=== PATIENT | male | born 1940 | race Caucasian/White ===

== ENCOUNTER 2020-01-27 05:43 | Observation (INO) | payer MEDICARE, OTHER ==
[2020-01-23 11:30] LABS: BASOPHILS % (AUTO) 0.6 % (0-1); EOSINOPHILS # (AUTO) 0.3 X10'3 (0-0.9); EOSINOPHILS % (AUTO) 3.5 % (0-6); LYMPHOCYTES % (AUTO) 12.6 % (21-51); MEAN CORPUSCULAR HGB CONC 33.1 g/dL (33.0-36.5); MEAN CORPUSCULAR VOLUME 93.7 FL (78-98); MEAN PLATELET VOLUME 8.1 FL (7.4-10.4); MONOCYTES # (AUTO) 0.9 X10'3 (0-0.9); MONOCYTES % (AUTO) 11.7 % (2-12); NEUTROPHILS # (AUTO) 5.5 X10'3 (1.8-7.7); NEUTROPHILS % (AUTO) 71.6 % (42-75); PRE OP HEMATOCRIT 37.7 % (42.0-52.0); PRE OP HEMOGLOBIN 12.5 g/dL (14.0-17.9); PRE OP PLATELET COUNT 265 X10'3 (140-440); RED BLOOD COUNT 4.02 X10'6 (4.70-6.10); RED CELL DISTRIBUTION WIDTH 12.5 % (11.5-14.5)
[2020-01-23 11:40] LABS: PRE OP PROTIME 10.5 SECONDS (9.0-12.0)
[2020-01-23 11:41] LABS: ALBUMIN 2.7 G/DL (3.4-5.0); ALBUMIN/GLOBULIN RATIO 0.8 (1.1-1.5); ALKALINE PHOSPHATASE 56 IU/L (46-116); BLOOD UREA NITROGEN 15 MG/DL (7-18); CALCIUM 8.2 MG/DL (8.5-10.1); CHLORIDE 109 MMOL/L (99-107); CREATININE 1.25 MG/DL (0.60-1.10); PRE OP ALT 21 U/L (30-65); PRE OP ANION GAP 10 (8-16); PRE OP AST 11 U/L (10-37); PRE OP BILIRUB, TOTAL 0.4 MG/DL (0.0-1.0); PRE OP SODIUM 142 MMOL/L (135-145); TOTAL CARBON DIOXIDE 22.9 MMOL/L (24-32); TOTAL PROTEIN 6.3 G/DL (6.4-8.2); eGFR 56 ML/MIN
[2020-01-23 11:43] LABS: PRE OP GLUCOSE 280 MG/DL (70-104); PRE OP POTASSIUM 3.2 MMOL/L (3.4-5.1)
[~2020-01-27] VITALS: Ht 177.8 cm; Wt 83.5 kg
[2020-01-27] VITALS (18 sets, daily range): BP systolic 107–151; BP diastolic 53–98
[~2020-01-27 05:43] MED LIST: CARV6.253 PO; DOCUMENT DATE & TIME OF BETA-BLOCKER PO ONE; LISI-604 PO; METF1000 PO; cefazolin/dext.iso 2gm/50ml 50 ML IV ONE; famotidine 20mg tablet PO ONE
[2020-01-27] MEDS ORDERED: LIDOcaine 1% (10mg/ml) 2ml vial ONE (06:11)
[2020-01-27] MEDS: ringers solution, lacted 1,000 ML IV SCH ×3 (06:28→12:46)
[2020-01-27] MEDS ORDERED: neomy sulf/polymyxin B sulf. GU irrigation 1ml amp IR ONE (06:50)
[2020-01-27] MEDS ORDERED: tetracaine 1% (10mg/ml) pres. free inj. ONE (07:09)
[2020-01-27] MEDS ORDERED: fentaNYL/PF 50MCG/1 ML 2ML syringe ONE (07:25)
[2020-01-27] MEDS ORDERED: MIDAZolam 5mg/5ml vial ONE (07:26)
[2020-01-27] MEDS ORDERED: ringers solution, lacted 1,000 ML IV SCH (08:36)
[2020-01-27] MEDS ORDERED: meperidine/PF 25mg/ml syringe IV PRN ×3 (08:40)
[2020-01-27] MEDS ORDERED: morphine 2 MG/ML inj. syringe IV PRN (08:40)
[2020-01-27] MEDS ORDERED: morphine 4 MG/ML inj SYRINge IV PRN (08:40)
[2020-01-27] MEDS ORDERED: proCHLORperazine 10 MG/2 ml inj IV PRN ×2 (08:40→10:35)
[2020-01-27] MEDS ORDERED: ondansetron/PF 4mg/2ml inj IV PRN ×2 (08:40→10:35)
--- NOTE | 2020-01-27 10:19 | NUR ---
Received from OR via [facility], accompanied by Anesthesiologist SEBAS and report given by Anesthesiolgist. PATIENT WITH 18G PIV IN LEFT UE RUNNING LR AT 100. VSS. DENIES PAIN. T11 SENSATION LEVEL AT THIS TIME FROM SPINAL ANESTHESIA. [address] [place] CATHETER IN PLACE. URINE IS PINK IN COLOR. Addendum: 01/27/20 at 1032 by Bradford Cook RN, RN Amended: Links added.
[2020-01-27] MEDS ORDERED: HYDROcodone/acetaminophen 10/325mg tab PO PRN ×2 (10:30→10:35)
[2020-01-27] MEDS ORDERED: zolpidem 5mg tablet PO PRN (10:35)
[2020-01-27] MEDS ORDERED: oxybutynin 5mg tablet PO PRN (10:35)
[2020-01-27] MEDS ORDERED: acetaminophen 325mg tablet PO PRN (10:35)
[2020-01-27] MEDS ORDERED: mag hydrox/Alum hydrox/simeth 30ml oral suspension PO PRN (10:35)
[2020-01-27] MEDS ORDERED: LIDOcaine 2% 10ml TOPICAL JELLY (Urojet) TP ONE (10:35)
[2020-01-27] MEDS ORDERED: opium/belladonna alkaloids No. 15A 30mg rectal suppository RC PRN (10:35)
[2020-01-27] MEDS ORDERED: dextrose ORAL solution 15 GM/59 ML bottle PO PRN ×2 (10:45)
[2020-01-27] MEDS ORDERED: insulin Lispro (HumaLOG) vial - multi-dose SQ SCH (10:45)
[2020-01-27] MEDS ORDERED: glucagon, human recombinant 1mg kit SUBCUT PRN (10:45)
[2020-01-27] MEDS ORDERED: MESSAGE TO PHARMACY PO ONE (10:45)
[2020-01-27] MEDS ORDERED: dextrose 50%-water 50ml dispensing syringe IV PRN ×2 (10:45)
--- NOTE | 2020-01-27 11:19 | NUR ---
ALL CRITERIA FOR DC TO THE FLOOR HAS BEEN ACHIEVED. 2 RAILS UP. BED LOW, CALL LIGHT PRESENT. GAVE REPORT TO LUIS STAUFFER . PAIN AT A TOLERABLE LEVEL AT THIS TIME. DRESSINGS CDI. CARE TURNED OVER TO RN. Addendum: 01/27/20 at 1137 by Bradford Hughes - LUIS RN Amended: Links added.
--- NOTE | 2020-01-27 11:30 | NUR ---
Received report from LUIS Felder and received patient to room 340B with CBI present, 3 way FC for irrigation in place and with leg strap, VANDA hose and SCD's in place. patient alert and pleasant. post op vitals started, VSS will continue to monitor.
--- NOTE | 2020-01-27 12:30 | NUR ---
Hand irrigated patient's 3 way CBI FC, got two small clots out, patient tolerated well and urine now flowing into catheter bag, irena pink-clear in color.
[2020-01-27] MEDS: potassium cl 20mEq in 1/2 NS 1,000 ML IV SCH ×3 (15:01→22:36)
[2020-01-27] MEDS ORDERED: ceFAZolin inj. 1,000 MG in dextrose 5%-water 50ml 50 ML IV SCH (16:00)
--- NOTE | 2020-01-27 18:15 | NUR ---
Received report from primary care nurse Mary RN. Assumed patient care. Patient is awake and alert on room air. In no apparent distress. CBI running a very light pink. Will continue to monitor for changes.
--- NOTE | 2020-01-27 18:16 | NUR ---
Problems reprioritized. Patient report given, questions answered & plan of care reviewed with LUIS Garcia.
[2020-01-27] MEDS: docusate sod 100mg capsule PO SCH (20:00)
[2020-01-27] MEDS: carvedilol 6.25mg tablet PO SCH (20:02)
[2020-01-27] MEDS: metFORMIN 500mg tablet PO SCH (20:02)
[2020-01-27] MEDS ORDERED: insulin glargine (Lantus) pen - multi-dose SQ SCH (21:00)
[2020-01-28] VITALS: BP 130/77
[2020-01-28] MEDS: ceFAZolin 1GM/D5W- ADD-VANTAGE 50 ML IV SCH ×2 (00:11→08:21)
[2020-01-28 05:50] LABS: BASOPHILS % (AUTO) 0.6 % (0-1); EOSINOPHILS # (AUTO) 0.3 X10'3 (0-0.9); EOSINOPHILS % (AUTO) 4.1 % (0-6); HEMATOCRIT 34.3 % (42.0-52.0); HEMOGLOBIN 11.6 g/dl (14.0-17.9); LYMPHOCYTES # (AUTO) 1.2 X10'3 (1.1-4.8); MEAN CORPUSCULAR HEMOGLOBIN 31.1 PG (27.0-31.0); MEAN CORPUSCULAR HGB CONC 33.8 g/dL (33.0-36.5); MEAN PLATELET VOLUME 7.9 FL (7.4-10.4); MONOCYTES # (AUTO) 0.8 X10'3 (0-0.9); MONOCYTES % (AUTO) 9.5 % (2-12); NEUTROPHILS # (AUTO) 5.8 X10'3 (1.8-7.7); NEUTROPHILS % (AUTO) 70.8 % (42-75); PLATELET COUNT 287 X10'3 (140-440); RED BLOOD COUNT 3.73 X10'6 (4.70-6.10); RED CELL DISTRIBUTION WIDTH 12.2 % (11.5-14.5); WHITE BLOOD COUNT 8.3 X10'3 (4.5-11.0)
[2020-01-28 06:03] LABS: ALBUMIN 2.2 G/DL (3.4-5.0); ANION GAP 10 (8-16); BLOOD UREA NITROGEN 13 MG/DL (7-18); BUN/CREATININE RATIO 10.7 (5.4-32.0); CALCIUM 7.8 MG/DL (8.5-10.1); CHLORIDE 111 MMOL/L (99-107); CREATININE 1.21 MG/DL (0.60-1.10); GLUCOSE 111 MG/DL (70-104); POTASSIUM 3.5 MMOL/L (3.5-5.1); SODIUM 142 MMOL/L (135-145); TOTAL CARBON DIOXIDE 21.2 MMOL/L (24-32); eGFR 58 ML/MIN
--- NOTE | 2020-01-28 06:20 | NUR ---
Reported off to Mariaa SMITH. Patient is awake and alert on room air. In no apparent distress. Call light and items of frequent use within reach.
[2020-01-28 07:23] VITALS: BP 134/75
[2020-01-28] MEDS ORDERED: pantoprazole 40mg Tablet.DR PO SCH (07:30)
[2020-01-28] MEDS: docusate sod 100mg capsule PO SCH (08:00)
[2020-01-28] MEDS ORDERED: lisinopril 5mg tablet PO SCH (08:00)
[2020-01-28] MEDS: metFORMIN 500mg tablet PO SCH (08:20)
[2020-01-28] MEDS: carvedilol 6.25mg tablet PO SCH (08:21)
[2020-01-28] MEDS: potassium cl 20mEq in 1/2 NS 1,000 ML IV SCH (08:24)
[2020-01-28] MEDS: ringers solution, lacted 1,000 ML IV SCH (09:59)
[2020-01-28] MEDS ORDERED: DOCU-148 PO (10:25)
[2020-01-28 11:29] VITALS: BP 117/70
--- NOTE | 2020-01-28 12:41 | NUR ---
PT DISCHARGED IN STABLE CONDITION. LEFT FACILITY IN PRIVATE VEHICLE. [place] CATHETER IN PLACE. EDUCATION GIVEN, DE [place] SUPPLIES GIVEN, ALL QUESTIONS ANSWERED. IV DC [facility] INTACT. FOLLOW UP APPT MADE BY DR HODGE. ALL BELONGINGS IN HAND.
== END 2020-01-28 12:00 | disposition home or self-care (01) ==
LOC: PAS 05:43 → SUR 3N 11:53 → UNDOADMOB 11:54
PROVIDERS: ADMIT Urology; ATTEND Urology
DX: Z03.818 Encounter for observation for suspected exposure to other biological agents ruled out (principal); N32.0 Bladder-neck obstruction; N21.0 Calculus in bladder; R33.9 Retention of urine, unspecified; N40.1 Benign prostatic hyperplasia with lower urinary tract symptoms
CPT/HCPCS: 36415; 52317; 52601; 80048; 80053; 82948; 83036; 85025; 85610; 85730; 86885; 86900; 86901; 96365; 96366; G0378; J0690; J2001; J2250; J3010; J7060; U0003; A4215; A4355; A4615; A4618; J1815; J3480; J7120